=== PATIENT | female | born 1965 | race Caucasian/White ===

== ENCOUNTER 2017-08-23 08:50 | Emergency (ER) | payer SELFPAY ==
[2017-08-23] MEDS ORDERED: ceFAZolin 500 MG VIAL(*) 500 MG VIAL IM ONE (10:21)
[2017-08-23] MEDS ORDERED: Tetan/Diph/Pertus SYR(Tdap)* 0.5 ML SYR(BOOSTRIX) use SYR IM ONE (11:04)
[2017-08-23 11:13] VITALS: BP 120/71
--- NOTE | 2017-08-23 11:33 | UC ---
Serafin Del Rosario Angela, scribed for Keisha Isaac MD on 08/23/17 at 1016 . Skin Complaint HPI - HPI Summary HPI Summary: This pt is a 51 y/o female presenting to [facility] c/o right 4th finger swelling upon waking up today. Pt reports she was at work yesterday when her finger began to itch and noticed a scratch at 1300 yesterday. Pt has a ring on her right 4th finger. She denies bleeding. Pt notes that overnight, her finger became swollen,red, and hot to touch. She states her pain radiates to her right arm and right sided chest. Pt denies fever. No PMHx of diabetes. Allergies: penicillin (took augmentin and had reaction of hives). - History of Current Complaint Chief Complaint: UCSkin Time Seen by Provider: 08/23/17 10:09 Stated Complaint: FINGER LAC Hx Obtained From: Patient Hx Last Menstrual Period: 07/29/17 Onset/Duration: Lasting Hours Skin Exposure Onset/Duration: Hours Ago Onset Severity: Mild Current Severity: Moderate Location: Hand (Right) - 4th finger Character: Swelling, Pruritus, Pain, Redness Associated Signs & Symptoms: Positive: Tenderness - right 4th finger, right arm , right sided chest. Negative: Fever - Allergy/Home Medications Allergies/Adverse Reactions: Allergies Allergy/AdvReac Type Severity Reaction Status Date / Time Penicillins Allergy Swelling Verified 08/23/17 09:04 Review of Systems Constitutional: Negative Skin: Other - swelling, pain and redness on right 4th finger. Eyes: Negative ENT: Negative Respiratory: Negative Cardiovascular: Negative Gastrointestinal: Negative Genitourinary: Negative Motor: Negative Neurovascular: Negative Musculoskeletal: Other: - right arm pain Neurological: Negative Is Patient Immunocompromised?: No All Other Systems Reviewed And Are Negative: Yes PMH/Surg Hx/FS Hx/Imm Hx Other Endocrine History: DENIES: diabetes Cardiovascular History: Hypertension - managed with weight loss - Surgical History Surgical History: Yes Surgery Procedure, Year, and Place: - Family History Known Family History: Negative: Diabetes - Social History Occupation: Employed Full-time Alcohol Use: Rare Substance Use Type: None Smoking Status (MU): Never Smoked Tobacco Physical Exam Triage Information Reviewed: Yes Appearance: Well-Appearing, Pain Distress - mild to moderate Vital Signs: Initial Vital Signs Temp 99.0 F 08/23/17 09:04 Pulse 65 08/23/17 09:04 Resp 18 08/23/17 09:04 BP 110/73 08/23/17 09:04 Pulse Ox 100 08/23/17 09:04 Vital Signs Reviewed: Yes Eye Exam: Normal ENT: Positive: Pharynx normal Respiratory: Positive: Lungs clear, Normal breath sounds Cardiovascular: Positive: RRR, No Murmur Neurological Exam: Normal Neurological: Positive: Alert, Muscle Tone Normal Skin Exam: Other - right hand with 4mm superficial lac with deep erythema 1 cm around it. Diffuse swelling of digit, ring snug and removed. Lymphangitic spread 10cm up right dorsum of hand, extending to lateral forearm near elbow, thin streak. NO axiallary adenopathy. Re-Evaluation - Re-Evaluation First Eval Re-Evaluation Time: 20:00 Change: Unchanged - ring removed, no reaction to im ancef. Course/Dx - Course Course Of Treatment: Pt is a 51 y/o female c/o pruritic right 4th finger with a small cut yesterday and today presents with erythema, swelling, and pain on finger. Pt medications reviewed this visit. ancef given, followed by clindamycin orally. - Differential Diagnoses - Skin Complaint Differential Diagnoses: Cellulitis, Lymphangitis - Diagnoses Provider Diagnoses: cellulitis right hand with lymphangitic spread Discharge - Discharge Plan Condition: Stable Disposition: HOME Prescriptions: Clindamycin HCl [Clindamycin 150 MG CAP*] 300 mg PO QID #28 cap Patient Education Materials: Cellulitis (ED), Diphtheria/Pertussis/Tetanus Vaccine (By injection) Additional Instructions: Begin clindamycin this afternnon for treatment of cellulitis. The redness should be decreasing in 48 hours, the pain should be improving by tomorrow. Return if you develop fever or worsening pain. You have had a tetanus booster today--good for 10 years. The documentation as recorded by the Serafin miguel Angela accurately reflects the service I personally performed and the decisions made by me, Keisha Isaac MD.
== END 2017-08-23 12:00 | disposition home or self-care (01) ==
LOC: UCEAST 08:50
DX: L03.113 Cellulitis of right upper limb (principal); Z88.0 Allergy status to penicillin
CPT/HCPCS: 90471; 90715; 96372; 99212; G0463; J0690

== ENCOUNTER 2017-08-30 13:46 | Emergency (ER) | payer BC ==
[2017-08-30 15:21] VITALS: BP 131/64
--- NOTE | 2017-08-30 17:17 | UC ---
Complaint Female HPI - HPI Summary HPI Summary: Patient presents with complaints of vaginal discharge, (clear) and external itching s 3-5 days. She states she also has been experiencing some external discomfort with urination, and has had increased urinary frequency. She states she is one day 07/29. She also states that her tongue feel very sensitive today as well. She states she was placed on the antibiotics for a cut on her finger that got infected. The cut has completely healed. She states she feels at times she has bee running a fever, and at school when it was checked it was 99.0, and she noted at that time she was sweating as well. She currently denies any sensation of having a fever, or sweating, so she is not sure if she really has had one. - History Of Current Complaint Chief Complaint: UCGU Stated Complaint: PERSONAL Time Seen by Provider: 08/30/17 16:29 Hx Obtained From: Patient Hx Last Menstrual Period: 07/29/17 ?: No Onset/Duration: Gradual Onset, Lasting Days Timing: Lasting Days Severity Initially: Mild Severity Currently: Moderate - Allergies/Home Medications Allergies/Adverse Reactions: Allergies Allergy/AdvReac Type Severity Reaction Status Date / Time Clindamycin Allergy Abdominal Verified 08/30/17 15:21 Pain Penicillins Allergy Swelling Verified 08/30/17 15:20 PMH/Surg Hx/FS Hx/Imm Hx Previously Healthy: Yes - Surgical History Surgical History: Yes Surgery Procedure, Year, and Place: - Family History Known Family History: Negative: Diabetes - Social History Occupation: Employed Full-time Lives: Alone Alcohol Use: Rare Substance Use Type: None Smoking Status (MU): Never Smoked Tobacco Review of Systems Constitutional: Negative Skin: Negative Eyes: Negative ENT: Negative Respiratory: Negative Cardiovascular: Negative Gastrointestinal: Negative Genitourinary: Frequency, Vaginal/Penile Itching, Vaginal/Penile Discharge Motor: Negative Neurovascular: Negative Musculoskeletal: Negative All Other Systems Reviewed And Are Negative: Yes Physical Exam Triage Information Reviewed: Yes Appearance: Well-Appearing Vital Signs: Initial Vital Signs Temp 97.9 F 08/30/17 15:18 Pulse 81 08/30/17 15:18 Resp 16 08/30/17 15:18 BP 131/64 08/30/17 15:18 Pulse Ox 100 08/30/17 15:18 Vital Signs Reviewed: Yes Eye Exam: Normal ENT Exam: Normal Neck exam: Normal Neck: Positive: 1 Respiratory Exam: Normal Cardiovascular Exam: Normal Abdominal Exam: Normal Abdomen Description: Positive: Other: - vaginal examination;external genetalia with excoriation, hepetic lesion, or rashes. Internal examination reveals thick white vaginal plaques and cervical discharge. culture obtained and are pending. Musculoskeletal Exam: Normal Neurological Exam: Normal Psychological Exam: Normal Skin Exam: Normal Complaint Female Dx - Course Course Of Treatment: Patient presents with vaginal discharge and itching on day 9/10 of Keflex for cellulitis of the finger. The cellulitis has resovled so I recommend she stop taking the antibiotics. A pelvis exam was performed and revealed a yeast infection, and oral exam reveals thrush. She was treated systemically with dilfucan 100 mg po once, and topically with nystatin swish and swallow, and vaginal suppitorites x one week. I do not suspect a UTI as she has been on antibitics, I feel her urinary urgency is reactive to the yeast infection. I did ask her to take her temperature routinely for the next few days to make sure she is not running a fever, and she is to go to the ER for additional testing. She verbalized understanding and was in agreement with the discharge plan. - Differential Dx/Diagnosis Differential Diagnosis/HQI/PQRI: Other - thrush vaginal yeast infection Provider Diagnoses: thrush. vaginal yeast infection Discharge - Discharge Plan Condition: Stable Disposition: HOME Prescriptions: Clotrimazole 1% CREAM* [Clotrimazole 1%*] 1 applic TOPICAL BEDTIME #7 tube Fluconazole 100 MG TAB* [Diflucan 100 MG TAB*] 100 mg PO DAILY #1 tab Nystatin SUSPENSION ORAL SYR* 100,000 units PO QID #28 c Patient Education Materials: Oral Candidiasis (ED), Vulvovaginal Candidiasis ( ED) Referrals: Zoltan Gaytan MD [Primary Care Provider] - Additional Instructions: If you are having fevers you will need to go to the ER and have blood cultures obtained.
== END 2017-08-30 17:20 | disposition home or self-care (01) ==
LOC: UCEAST 13:46
DX: B37.49 Other urogenital candidiasis (principal)
CPT/HCPCS: 87480; 87491; 87510; 87591; 87661; 99212; G0463